=== PATIENT | female | born 1955 | race Caucasian/White ===

== ENCOUNTER → 2016-05-20 | Outpatient (CLI) | payer OTHER | LOC: MMPC 11:11 | PROVIDERS: ATTEND Internal Medicine | DX: G35 Multiple sclerosis (principal); F90.0 Attention-deficit hyperactivity disorder, predominantly inattentive type; G47.33 Obstructive sleep apnea (adult) (pediatric); Z02.89 Encounter for other administrative examinations | CPT/HCPCS: 99214; G0463 ==

== ENCOUNTER → 2016-08-10 | Outpatient (CLI) | payer OTHER | LOC: MMPC 11:11 | PROVIDERS: ATTEND Internal Medicine | DX: G35 Multiple sclerosis (principal); E78.5 Hyperlipidemia, unspecified | CPT/HCPCS: 99214; G0463 ==